=== PATIENT | male | born 1995 | race Caucasian/White ===

== ENCOUNTER 2021-04-09 10:17 | Emergency (ER) | payer BC, SELFPAY ==
[2021-04-09 10:25] VITALS: BP 127/69; PULSE 66; RESP 15; TEMP 36.4; O2SAT 100
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
[2021-04-09] MEDS: Ibuprofen 600 MG TAB PO (10:40)
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
--- OUTSIDE RECORDS SUMMARY | 2021-04-09 13:53 | XMS_ITS | Clinical Summary ---
:1995 Author Organization [facility] [place] [address] Care Team Providers Name Role Phone Unavailable Primary Care Provider Unavailable Source Comments PLEASE NOTE, if this patient is a minor, it may be UNLAWFUL to discuss sensitive information that iscontained in these records (such as FAMILY PLANNING, MENTAL HEALTH or SUBSTANCE ABUSE) with the minor patient's parent or other person without the patient's specific authorization.[facility] Immunizations Name Administration Dates Next Due Pfizer COVID-19 Vaccine 12/13/2020, 11/19/2020 Social History Tobacco Use Types Packs/Day Years Used Date Never Assessed Sex Assigned at Date Recorded Not on file Plan of Treatment Health Maintenance Due Date Last Done Comments Hepatitis C Screening 1995 Imm-HPV (1 - Male 2-dose series) 01/25/2008 Depression Annual Screen (#1) 2009 HIV Screening 01/25/2012 Hypertension Screening (#1) 2015 Imm-DTaP/Tdap/Td (1 - Tdap) 01/25/2016 SBIRT Annual Alcohol And Drug Screen 08/06/2020 Imm-Influenza (#1) 2021 [id number] Completed 12/13/2020, 11/19/2020 Insurance Payer Benefit Plan Subscriber ID Effective Phone Address Typ e / Group Dates BLUE BCBS PPO PO [id number] 2020-Prese [phone] Indemnity [place]OSS/BS [place] [id number] [place] [address]
--- OUTSIDE RECORDS SUMMARY | 2021-04-09 13:53 | XMS_ITS | Encounter Summary ---
:1995 Author Organization [facility] [place] [address] Care Team Providers Name Role Phone Unavailable Primary Care Provider Unavailable Encounter Details Date Type Department Care Team Description 12/13/2020 Immunization [facility] Immuniza tion [address] [place] [id number] Social History Tobacco Use Types Packs/Day Years Used Date Never Assessed Sex Assigned at Date Recorded Not on file documented as of this encounter Plan of Treatment Not on filedocumented as of this encounter Visit Diagnoses Not on filedocumented in this encounter
--- OUTSIDE RECORDS SUMMARY | 2021-04-09 13:53 | XMS_ITS | Encounter Summary ---
:1995 Author Organization [facility] [place] [address] Care Team Providers Name Role Phone Unavailable Primary Care Provider Unavailable Encounter Details Date Type Department Care Team Description 11/19/2020 Immunization [facility] Immuniza tion [address] [place] [phone] Social History Tobacco Use Types Packs/Day Years Used Date Never Assessed Sex Assigned at Date Recorded Not on file documented as of this encounter Plan of Treatment Not on filedocumented as of this encounter Visit Diagnoses Not on filedocumented in this encounter
--- OUTSIDE RECORDS SUMMARY | 2021-04-09 13:53 | XMS_ITS ---
:1995 Author Care Team Providers Name Role Phone DR. EDWAR SILVER Referring Provider [phone] Allergies None recorded. Medications None recorded. Problems None recorded. Procedures None recorded. Results Lab Results None recorded. Past Encounters None recorded. Social History None recorded. Vaccine List None recorded. Plan of Care Reminders Provider Appointments None ? ? recorded. Lab None ? ? recorded. Referral None ? ? recorded. Procedures None ? ? recorded. Surgeries None ? ? recorded. Imaging None ? ? recorded. Vitals Height Weight 6 ft 150 lbs
== END 2021-04-09 11:35 | disposition home or self-care (01) ==
PROVIDERS: Emergency Provider Emergency Medicine
DX: S46.812A Strain of other muscles, fascia and tendons at shoulder and upper arm level, left arm, initial encounter (principal); V19.9XXA Pedal cyclist (driver) (passenger) injured in unspecified traffic accident, initial encounter
CPT/HCPCS: 99283; 73030